=== PATIENT | male | born 1950 | race Caucasian/White ===

== ENCOUNTER 2016-03-20 11:08 | Emergency (ER) | payer OTHER ==
[~2016-03-20] VITALS: Ht 170.2 cm; Wt 53.8 kg
[2016-03-20 11:29] VITALS: BP 141/85; PULSE 96; RESP 24; TEMP 98.8; O2SAT 92
[2016-03-20 12:40] VITALS: BP 143/89; PULSE 90; RESP 20; O2SAT 95
--- NOTE | 2016-03-20 12:55 | PD ---
HPI Chief Complaint: Respiratory Symptoms Time Seen by Provider: 12:38 Travel History International Travel<30 days: No Contact w/Intl Traveler<30days: No Traveled to known affect area: No History of Present Illness HPI This is a 65 year old male who presents to the emergency department with increasing difficulty breathing, feeling like he can't catch his breath, associated with coughing fits, constant, worsening. Pt. has brought up some clear fluid. The patient reports his shortness of breath is worse than exertion. The patient can barely climb a flight of stairs without getting out of breath. It is worse lying flat. (+) chills but no fever. The patient has about a 40 pack year smoking history. PFSH Past Medical History Asthma: No Autoimmune Disease: No Cancer: No Cardiovascular Problems: No Chemotherapy: No COPD: Yes (NEW [place]) Diabetes: No Endocrine: No GERD: No Genitourinary: No Hepatitis: No Hiatal Hernia: No Immune Disorder: No Kidney Stones: No Musculoskeletal: No Neurologic: No Psychiatric: No Reproductive: No Respiratory: Yes (LUNG INFECTION CAUSED PT TO QUIT SMOKING 11/2013) Radiation Therapy: No Renal Failure: No Sickle Cell Disease: No Sleep Apnea: Yes Thyroid Disease: No Ulcer: No Past Surgical History Abdominal Surgery: No AICD: No Arteriovenous Shunt: No Cardiac Surgery: No Ear Surgery: No Endocrine Surgery: No Eye Surgery: No Genitourinary Surgery: Yes (VASECTOMY ) Gynecologic Surgery: No Insulin Pump: No Joint Replacement: No Oral Surgery: No Pacemaker: No Thoracic Surgery: No Other Surgery: Yes Social History Alcohol Use: Yes (OCCASSIONAL) Tobacco Use: No (FORMER) Substance Use: Yes (MARIJUANA) Allergies-Medications (Allergen,Severity, Reaction): Coded Allergies: Banana (Unverified Allergy, Severe, THROAT SWELLS, 03/20/16) Reported Meds & Prescriptions Reported Meds & Active Scripts Active No Active Prescriptions or Reported Medications Review of Systems Except as stated in HPI: all other systems reviewed are Neg Physical Exam Narrative GENERAL:Well appearing, no acute distress SKIN: Warm and dry. HEAD: Atraumatic. Normocephalic. EYES: Pupils equal and round. No injection or drainage. ENT: Moist mucous membranes NECK: Trachea midline. CARDIOVASCULAR: Regular rate and rhythm. No murmur appreciated. RESPIRATORY: Diffuse wheezing bilaterally with some increased work of breathing. GASTROINTESTINAL: Abdomen soft, non-tender, nondistended. MUSCULOSKELETAL: No obvious deformities. NEUROLOGICAL: Awake and alert. No obvious cranial nerve deficits. Moving all extremities. PSYCHIATRIC: Appropriate mood and affect; insight and judgment normal. Data Data Last Documented VS Vital Signs Date Time Temp Pulse Resp B/P Pulse Ox O2 Delivery O2 Flow Rate FiO2 03/20/16 13:39 100 20 122/56 94 03/20/16 11:29 98.8 Orders Complete Blood Count With Diff (03/20/16 12:56) Comprehensive Metabolic Panel (03/20/16 12:56) ^ Insert Iv (03/20/16 12:56) Chest, Pa & Lat (03/20/16 ) Methylprednisolone So Succ Inj (Solumedr (03/20/16 13:00) Azithromycin (Zithromax) (03/20/16 13:00) Albuterol-Ipratropium Neb (Duoneb Neb) (03/20/16 13:00) D-Dimer (03/20/16 13:16) Labs Laboratory Tests Test 03/20/16 13:05 White Blood Count 7.5 TH/MM3 Red Blood Count 6.13 MIL/MM3 Hemoglobin 17.8 GM/DL Hematocrit 54.1 % Mean Corpuscular Volume 88.4 FL Mean Corpuscular Hemoglobin 29.0 PG Mean Corpuscular Hemoglobin 32.8 % Concent Red Cell Distribution Width 12.8 % Platelet Count 253 TH/MM3 Mean Platelet Volume 8.9 FL Neutrophils (%) (Auto) 58.2 % Lymphocytes (%) (Auto) 25.1 % Monocytes (%) (Auto) 8.1 % Eosinophils (%) (Auto) 4.7 % Basophils (%) (Auto) 3.9 % Neutrophils # (Auto) 4.3 TH/MM3 Lymphocytes # (Auto) 1.9 TH/MM3 Monocytes # (Auto) 0.6 TH/MM3 Eosinophils # (Auto) 0.4 TH/MM3 Basophils # (Auto) 0.3 TH/MM3 CBC Comment DIFF FINAL Differential Comment Sodium Level 141 MEQ/L Potassium Level 4.2 MEQ/L Chloride Level 104 MEQ/L Carbon Dioxide Level 28.7 MEQ/L Anion Gap 8 MEQ/L Blood Urea Nitrogen 14 MG/DL Creatinine 1.30 MG/DL Estimat Glomerular Filtration 56 ML/MIN Rate Random Glucose 90 MG/DL Calcium Level 8.8 MG/DL Total Bilirubin 1.0 MG/DL Aspartate Amino Transf 17 U/L (AST/SGOT) Alanine Aminotransferase 31 U/L (ALT/SGPT) Alkaline Phosphatase 64 U/L Total Protein 7.7 GM/DL Albumin 4.0 GM/DL MDM Medical Decision Making Medical Screen Exam Complete: Yes Emergency Medical Condition: Yes Interpretation(s) Afebrile, mild tachycardia, hypoxic Hemoconcentration Electrolytes are reassuring Chest x-ray: Hyperinflated Differential Diagnosis COPD exacerbation, bronchitis, pneumonia, pulmonary embolism, congestive heart failure Narrative Course This is a 65-year-old male who presents to the emergency department with increasing shortness of breath over the past week. On exam he has poor air movement. He has a history of possible COPD. He was placed in a monitor and an IV was established. Labs are obtained which are reassuring. Chest x-ray demonstrates hyperinflation. He was given serial DuoNeb's and steroids and he feels much better. On repeat exam he is audibly wheezing with poor air movement than prior to bronchodilators. He otherwise is well. I think is appropriate for discharge. He'll be discharged with prednisone, albuterol and antibiotics. Diagnosis Primary Impression: COPD (chronic obstructive pulmonary disease) with acute bronchitis Patient Instructions: General Instructions Additional Instructions: If you develop severe shortness of breath, chest pain, or difficulty breathing return to the emergency department. Use albuterol every 4 hours for the next 2 days. Then use as needed for wheezing. Complete your course of steroids. Complete your course of antibiotics. Follow up with your primary care physician in 2-3 days if your symptoms have not improved. Med/Other Pt SpecificInfo: Prescription(s) given Scripts Prednisone 20 Mg Tab20 Mg PO BID 4 Days Ref 0 Prov:Mary Booth MD 03/20/16 Albuterol 8.5 GM Inh (Proair Hfa 8.5 GM Inh)90 Mcg/Act Aer2 Puff INH Q4-6H PRN ( SHORTNESS OF BREATH) #1 INHALER Ref 0 108 mcg/actuation Prov:Mary Booth MD 03/20/16 Azithromycin 250 Mg Mer422 Mg PO DIRECTED #4 TAB Ref 0 Take 2 tabs (500 mg) on day 1 then 1 tab daily x 4 days. Prov:Mary Booth MD 03/20/16 Disposition: 01 DISCHARGE HOME Condition: Stable Mary Booth MD Mar 20, 2016 12:55
[2016-03-20] MEDS ORDERED: AZITHROMYCIN 250 MG TAB PO ONE (13:00)
[2016-03-20] MEDS ORDERED: methylPREDNISolone SOD SUCC 125 MG/2 ML VIAL IV PUSH ONE (13:00)
[2016-03-20] MEDS: RESP: ALBUTEROL 2.5 MG/IPRATROPIUM 0.5 MG NEB (SCH) INH ×2 (13:05→13:06)
[2016-03-20 13:21] LABS: AUTOMATED NEUTROPHIL # 4.3 TH/MM3 (1.8-7.7); BASOPHIL # 0.3 TH/MM3 (0-0.2); BASOPHIL % 3.9 % (0.0-2.0); EOSINOPHIL # 0.4 TH/MM3 (0-0.4); EOSINOPHIL % 4.7 % (0.0-4.0); HEMATOCRIT 54.1 % (39.0-51.0); HEMO FLAGS DIFF FINAL; LYMPH % 25.1 % (9.0-44.0); LYMPHOCYTE # 1.9 TH/MM3 (1.0-4.8); MEAN CELL VOLUME 88.4 FL (80.0-100.0); MEAN CORPUSCULAR HGB CONC 32.8 % (32.0-36.0); MONO % 8.1 % (0.0-8.0); NEUT % 58.2 % (16.0-70.0); PLATELET COUNT 253 TH/MM3 (150-450); RED BLOOD COUNT 6.13 MIL/MM3 (4.50-5.90); RED CELL DISTRIBUTION WIDTH 12.8 % (11.6-17.2); WHITE BLOOD COUNT 7.5 TH/MM3 (4.0-11.0)
[2016-03-20 13:27] LABS: CHLORIDE 104 MEQ/L (98-107); POTASSIUM 4.2 MEQ/L (3.5-5.1); SODIUM (NA) 141 MEQ/L (136-145)
[2016-03-20 13:30] LABS: ANION GAP 8 MEQ/L (5-15); BICARBONATE 28.7 MEQ/L (21.0-32.0); BLOOD UREA NITROGEN 14 MG/DL (7-18)
[2016-03-20 13:33] LABS: ALT (GPT) 31 U/L (12-78); AST (GOT) 17 U/L (15-37); GLOMERULAR FILTRATION RATE 56 ML/MIN (>89)
[2016-03-20 13:36] LABS: ALKALINE PHOSPHATASE 64 U/L (45-117)
[2016-03-20 13:39] VITALS: BP 122/56; PULSE 100; RESP 20; O2SAT 94
[2016-03-20] MEDS ORDERED: AZIT250T3 PO (13:49)
[2016-03-20] MEDS ORDERED: PRED20 PO (13:49)
[2016-03-20] MEDS ORDERED: ALBUAER3 INH (13:49)
--- NOTE | 2016-03-20 14:34 | RADHPO ---
EXAM DATE/TIME: 03/20/2016 13:29 [facility] COMPARISON: CHEST SINGLE AP, November 12, 2013, 3:44. INDICATIONS : Short of breath MEDICAL HISTORY : None. SURGICAL HISTORY : None. ENCOUNTER: Initial ACUITY: 1 day PAIN SCORE: 4/10 LOCATION: Bilateral chest FINDINGS: The lungs are mildly hyperinflated but clear. Minimal apical parenchymal changes are noted, worse on the right than the left. Heart and pulmonary vascularity are normal. CONCLUSION: Marked hyperinflation with minimal apical pleural changes, worse on the right. These are stable from 11/12/2013. Virgilio Peoples MD FACR on March 20, 2016 at 13:53 Board Certified Radiologist. This report was verified electronically.
== END 2016-03-20 13:58 | disposition home or self-care (01) ==
LOC: PHED 11:08
DX: J44.9 Chronic obstructive pulmonary disease, unspecified (principal); J20.9 Acute bronchitis, unspecified
CPT/HCPCS: 71020; 80053; 85025; 94640; 94664; 96374; 99285; J2930